=== PATIENT | male | born 1965 | race Caucasian/White ===

== ENCOUNTER → 2019-04-07 | Outpatient (CLI) | payer BC ==
--- NOTE | 2019-04-07 20:35 | CONS ---
CONSULTATION DATE OF SERVICE: 04/07/2019 This patient is a 53-year-old gentleman who has been evaluated in Sleep Center for obstructive sleep apnea-hypopnea syndrome. HISTORY OF PRESENT ILLNESS/SLEEP-WAKE EVALUATION: The patient was diagnosed with severe obstructive sleep apnea in 2011. At that time, apnea-hypopnea index was 56.4 with oxygen desaturation to 82%. Subsequently he had CPAP and BiPAP titration and received a BiPAP unit with a pressure of 13/6 cm of water. Since that time until present, the patient has continued to use his BiPAP equipment every night for the whole night. Recently he developed snoring with the BiPAP equipment, and also recently his BiPAP machine was broken. At present his sleep schedule is from around 3 a.m. until 11 a.m. on weekdays and from around 3 or 4 a.m. until 12 noon on weekends. The patient works an afternoon shift. No problem with falling asleep. No TV in bedroom. During the day, he may feel some sleepiness. [place] Sleepiness Scale is 9. He may take a nap around 5 p.m. on days off. He feels refreshed after naps and may see vivid dreams after naps. No history of hypnagogic hallucinations, sleep paralysis or cataplexy. PAST MEDICAL HISTORY: Positive for: 1. Hypertension. 2. Diabetes mellitus. 3. Hyperlipidemia. 4. Acid reflux. PAST SURGICAL HISTORY: 1. Tonsillectomy. 2. Fatty tumor removed from the back. MEDICATIONS: 1. Omeprazole. 2. Cymbalta. 3. Lisinopril. 4. Metformin. 5. Lipitor. SOCIAL HISTORY: Positive for smoking about one pack a day for 20 years. Alcohol consumption occasional. FAMILY HISTORY: Hypertension, heart problems, hyperlipidemia, mental illness. REVIEW OF SYSTEMS: Sometimes snoring with BiPAP. PHYSICAL EXAMINATION: GENERAL: A pleasant gentleman without distress. VITAL SIGNS: BP 136/76, HR 84, RR 18, height 5 feet 7-1/4 inches, weight 270 pounds, body mass index 42.0, temperature 98.4, oxygen saturation at room air 97%. HEENT: PERRLA, EOMI. Evaluation of oropharynx showed tongue protrudes midline. Extremely low position of soft palate. Mallampati IV. Wide neck; 20-1/4 inches in circumference. NECK: Supple. No JVD. Thyroid is not palpable. LUNGS: Clear to percussion and to auscultation. Good air exchange. No wheezing or rhonchi. HEART: S1, S2 regular. No murmurs, gallops or rubs. ABDOMEN: Obese. EXTREMITIES: No clubbing or cyanosis. RETURNED CASE INSPECTOR: Awake, alert, and oriented X3. Cranial nerves 2 to 7 intact. There is no fasciculation or atrophy. noted. No focal deficits observed. IMPRESSION: 1. History of severe obstructive sleep apnea with apnea-hypopnea index 56.4 and oxygen desaturation to 82%. The patient is on treatment with BiPAP and has demonstrated great compliance with treatment, but his machine recently was broken. He slept well on the machine but developed snoring, which has been present also while he was on BiPAP. 2. Obesity; body mass index 42.0. He has had a change in his weight, down from 278 pounds to 270 pounds now from the time when he had titration. 3. Hypertension. 4. Diabetes mellitus. 5. Hyperlipidemia. 6. Acid reflux. 7. Status post tonsillectomy. 8. 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 PLAN: 1. Patient will continue to use BiPAP equipment every night for the whole night. 2. Prescription for Auto BiPAP with a maximal inspiratory pressure of 15 and minimal expiratory pressure 6, but with a pressure support of 4. 3. Prescription for all necessary supplies, including mask, tube, filters. 4. Losing weight. 5. Sleep hygiene with regular time in bed for at least 8 hours. 6. No driving if feeling any sleepiness. 7. Follow-up visit in one month after the patient gets new BiPAP equipment to evaluate clinical response on treatment and compliance with treatment and to make any necessary adjustments. Thank you very much for allowing me to participate in the management of your patient. Sincerely, Hema Bonilla MD, PhD, FAASM Diplomat of [employer] Street [employer] Servicer of [facility] [place] MMISHMAEL / NONI: [id number] /
== END ==
LOC: SLEEP 13:44
PROVIDERS: ATTEND Internal Medicine
DX: G47.33 Obstructive sleep apnea (adult) (pediatric) (principal); E66.9 Obesity, unspecified; I10 Essential (primary) hypertension; E11.9 Type 2 diabetes mellitus without complications; E78.5 Hyperlipidemia, unspecified; F17.210 Nicotine dependence, cigarettes, uncomplicated; K21.9 Gastro-esophageal reflux disease without esophagitis; Z90.89 Acquired absence of other organs; Z99.89 Dependence on other enabling machines and devices; Z68.41 Body mass index [BMI] 40.0-44.9, adult; Z79.899 Other long term (current) drug therapy; Z79.84 Long term (current) use of oral hypoglycemic drugs; Z98.890 Other specified postprocedural states
CPT/HCPCS: 99211

== ENCOUNTER → 2020-11-14 | Outpatient (CLI) | payer BC ==
--- NOTE | 2020-11-15 06:25 | SFUN ---
SLEEP CENTER FOLLOW UP NOTE DATE OF SERVICE: 11/14/2020 HISTORY OF PRESENT ILLNESS: A 55-year-old gentleman who has been followed in Sleep Center for treatment of obstructive sleep apnea-hypopnea syndrome. The patient continues to use his BiPAP equipment every night, likes his machine and mask. No significant problem related to mask fitting, pressure or humidification. [place] Sleepiness Scale today is 6. I checked his BiPAP unit. Pressure in the range of 15 maximal inspiratory pressure and 6 minimal expiratory pressure. Usage 29/30 nights for more than 4 hours with average usage is 6.6 hours per night. Leak is 23 L/minute which is borderline. Apnea-hypopnea index is 4.5, which is normal. MEDICATIONS: Omeprazole, lisinopril, Lipitor, Cymbalta. PHYSICAL EXAM: Patient in no distress. BP 144/87, HR 88, RR 15, height 5 feet 8-1/2 inches, weight 261 pounds, BMI 39.2, temperature 98.5, oxygen saturation at room air 98%. HEENT: PERRLA, EOMI. Oropharynx extremely low position of soft palate. Mallampati 4. NECK: Supple, no JVD. Thyroid is not palpable. LUNGS: Clear to percussion and to auscultation. Good air exchange. No wheezing or rhonchi. HEART: S1, S2 regular. No murmurs, gallops, or rubs. ABDOMEN: Soft and nontender. Bowel sounds are present. No organomegaly appreciated. EXTREMITIES: No clubbing or cyanosis. FRAME REPAIRER: Awake, alert, and oriented X3. Cranial nerves 2 to 7 intact. There is no fasciculation or atrophy. noted. No focal deficits observed. IMPRESSION: 1. Severe obstructive sleep apnea-hypopnea syndrome. Patient demonstrated 100% compliance with treatment benefitting from BiPAP therapy. 2. Obesity. Patient lost 9 pounds since previous visit. 3. Hypertension. 4. Diabetes mellitus. 5. Hyperlipidemia. 6. Acid reflux. 7. Status post tonsillectomy. 8. 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 PLAN: PLAN 1. Patient will continue to use PAP equipment every night for the whole night. 2. Sleep hygiene with regular time in bed for at least 7-1/2 to 8 hours. 3. Precautions related to driving. No driving if feeling sleepiness. 4. I will maintain all necessary prescription for PAP supplies including mask, tube, filters. 5. Watching weight. 6. No driving if feeling sleepiness. 7. Follow-up visit in 6 months or earlier if patient has any problems. Thank you very much for allowing me to participate in management of your patient. Sincerely, Hema Bonilla MD, PhD, FAASM Diplomat of [employer] Mechanical Systems Designer of [facility] [place] MMODL / GRADYN: [id number] /
== END | disposition home or self-care (01) ==
LOC: SLEEP 16:22
PROVIDERS: ATTEND Internal Medicine
DX: G47.33 Obstructive sleep apnea (adult) (pediatric) (principal); E66.9 Obesity, unspecified; I10 Essential (primary) hypertension; E11.9 Type 2 diabetes mellitus without complications; E78.5 Hyperlipidemia, unspecified; K21.9 Gastro-esophageal reflux disease without esophagitis; Z99.89 Dependence on other enabling machines and devices; Z79.899 Other long term (current) drug therapy; Z98.890 Other specified postprocedural states

== ENCOUNTER → 2021-05-23 | Outpatient (CLI) | payer BC ==
--- NOTE | 2021-05-24 12:24 | SFUN ---
SLEEP CENTER FOLLOW UP NOTE DATE OF SERVICE: 05/23/2021 This 55-year-old gentleman has been followed in Sleep Center for treatment of obstructive sleep apnea-hypopnea syndrome. The patient continues to use his BiPAP equipment every night for the whole night. No problems with the supplies. No snoring with the machine. [place] Sleepiness Scale is 5, which is totally normal. I checked his BiPAP unit. Maximal inspiratory pressure is 15, minimal expiratory pressure 6, pressure support 4, average pressure 13/9 cm of water. Usage is 100% of nights and 28/30 nights for more than 4 hours, average 7 hours per night. Leak is 22 L/minute, which is borderline. Apnea-hypopnea index is 1.2, which is absolutely perfect. MEDICATIONS: 1. Omeprazole. 2. Cymbalta. 3. Lisinopril. 4. Lipitor. 5. Metformin. PHYSICAL EXAMINATION: GENERAL: A pleasant patient without any distress. VITAL SIGNS: BP 128/68, HR 96, RR 15, height 5 feet 8-1/2 inches, weight 258 pounds, which is 3 pounds less than during previous visit, BMI 38.6, temperature 98.4, oxygen saturation at room air 98%. HEENT: PERRLA, EOMI, evaluation of oropharynx showed tongue protrudes midline. Extremely low position of soft palate. Mallampati 4. NECK: Supple, no JVD. Thyroid is not palpable. LUNGS: Clear to percussion and to auscultation. Good air exchange. No wheezing or rhonchi. HEART: S1, S2 regular. No murmurs, gallops, or rubs. ABDOMEN: Obese. EXTREMITIES: No clubbing or cyanosis. LINER ASSEMBLER: Awake, alert, and oriented X3. Cranial nerves 2 to 7 intact. There is no fasciculation or atrophy. noted. No focal deficits observed. IMPRESSION: 1. Severe obstructive sleep apnea-hypopnea syndrome. Patient demonstrated 100% compliance with BiPAP, benefitting from treatment. 2. Obesity. 3. Hypertension. 4. Diabetes mellitus. 5. Hyperlipidemia. 6. Acid reflux. 7. Status post tonsillectomy. 8. 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 PLAN: 1. Patient will continue to use PAP equipment every night for the whole night. 2. Sleep hygiene with regular time in bed for at least 7-1/2 to 8 hours. 3. Precautions related to driving. No driving if feeling sleepiness. 4. I will maintain all necessary prescription for PAP supplies including mask, tube, filters. 5. Watching weight. 6. Follow-up visit in 6 months or earlier if patient has any problems. Thank you very much for allowing me to participate in the management of your patient. Sincerely, Hema Bonilla MD, PhD, FAASM Diplomat of [place] [employer] Sleep Medicine Board of [place] [employer] Medicine [employer] Worker of [facility] [place] MMODL / GRADYN: [id number] /
== END ==
LOC: SLEEP 16:32
PROVIDERS: ATTEND Internal Medicine
DX: G47.33 Obstructive sleep apnea (adult) (pediatric) (principal); E66.9 Obesity, unspecified; I10 Essential (primary) hypertension; E11.9 Type 2 diabetes mellitus without complications; K21.9 Gastro-esophageal reflux disease without esophagitis; E78.5 Hyperlipidemia, unspecified; Z90.09 Acquired absence of other part of head and neck; Z98.890 Other specified postprocedural states; Z68.36 Body mass index [BMI] 36.0-36.9, adult; Z99.89 Dependence on other enabling machines and devices; Z79.84 Long term (current) use of oral hypoglycemic drugs; Z79.899 Other long term (current) drug therapy; Z88.0 Allergy status to penicillin

== ENCOUNTER → 2023-12-17 | Outpatient (CLI) | payer BC ==
[2023-12-17 10:47] VITALS: BP 115/79; PULSE 114; RESP 16; TEMP 98.6
--- NOTE | 2023-12-17 10:58 | P.PN ---
Subjective DATE: 12/17/2023 FOLLOW UP VISIT. Patient with obstructive sleep apnea hypopnea syndrome return to sleep center for follow-up visit. Information from previous visit have been reviewed. Patient is using PAP equipment every night for the whole night, getting PAP supplies in time. The patient does not have significant problems with the mask, PAP unit and humidification. [place] sleepiness scale is 5, which is normal. I checked information from BPAP unit. PAP unit pressure maximal inspiratory pressure 15, minimal expiratory pressure 6, pressure support 4 cm H2O. Usage is 100% for more then 4 hours, average 8.3 hours per night. Leak is 24 l/m, which is in acceptable range. Apnea Hypopnea Index is 1.8, which is normal. MEDICATIONS:1. Omeprazole 2. Lisinopril 10 mg once a day 3. Lipitor 10 mg once a day 6 4. Cymbalta During physical exam: GENERAL: A pleasant patient without any distress. VITAL SIGNS: BP 115/79, HR 110, RR 16, weight 250, temperature 98.6, oxygen saturation at room air 97% . HEENT: PERRLA, EOMI.low position of soft palate, Mallapati 4 . NECK: Supple. No JVD. LUNGS: Clear to percussion and to auscultation. Good air exchange. No wheezing or rhonchi. HEART: S1, S2 regular. ABDOMEN: Soft and nontender.[] EXTREMITIES: No clubbing or cyanosis. COMMERCIAL COUNSEL: Awake, alert, and oriented x3. No focal deficit. Impressions: 1. Obstructive sleep apnea-hypopnea syndrome. Patient demonstrated great compliance with treatment, benefiting from treatment. 2. Obesity, patient lost 8 pounds compliant with the previous visit. 3. Diabetes mellitus. 4. Hypertension. 5. Hyperlipidemia. 6. Acid reflux. 7. 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 8. Status post tonsillectomy. Plan: 1. Continue using PAP equipment every night for the whole night. 2. To change air filter at least 1-2 times per month. 3. PAP unit should stay lower then position of the head. 4. Advised patient to remove all remaining water from humidifier canister daily and make it dry after each usage. Refill canister with fresh distilled water before each usage. 5. Sleep hygiene with regular time in bed for at least 8 hours. 6. Precautions related to driving. No driving if feel any sleepiness. 7. I will maintain prescription for PAP supplies including mask, tube, filters. 8. Follow up visit in 6 months or earlier if patient has any problems. 9. Watching and losing weight. Thank you very much for allowing me to participate in the management of your patient. Hema Bonilla MD, PhD, FAASM. Diplomat of [place] Board [employer] Medicine, Sleep Medicine Board by [place] [employer] Medicine Information Support Project Manager of [facility] [place] Objective - Vital Signs Vital signs: Vital Signs Temp 98.6 F 12/17/23 10:36 Pulse 114 H 12/17/23 10:36 Resp 16 12/17/23 10:36 BP 115/79 12/17/23 10:36 Pulse Ox 97 12/17/23 10:36 FiO2
== END ==
LOC: 3 N SLEEP 10:28
PROVIDERS: ATTEND Internal Medicine
DX: G47.33 Obstructive sleep apnea (adult) (pediatric) (principal); E66.9 Obesity, unspecified; E11.9 Type 2 diabetes mellitus without complications; I10 Essential (primary) hypertension; E78.5 Hyperlipidemia, unspecified; K21.9 Gastro-esophageal reflux disease without esophagitis; F17.200 Nicotine dependence, unspecified, uncomplicated; Z98.890 Other specified postprocedural states; Z90.89 Acquired absence of other organs; Z99.89 Dependence on other enabling machines and devices; Z79.899 Other long term (current) drug therapy; Z88.0 Allergy status to penicillin
CPT/HCPCS: 99212

== ENCOUNTER 2024-05-02 14:18 | Emergency (ER) | payer BC ==
[2024-05-02 14:31] VITALS: RESP 18; TEMP 98.2
--- NOTE | 2024-05-02 14:47 | ED ---
General Adult HPI - General Chief complaint: Neuro Symptoms/Deficit Stated complaint: Vision issue Time Seen by Provider: 05/02/24 14:34 Source: patient Mode of arrival: ambulatory - History of Present Illness Initial comments: Dictation was produced using [employer] dictation software. please excuse any grammatical, word or spelling errors. Chief Complaint: 58-year-old male presents with double vision History of Present Illness: Patient 58-year-old male states that he has past medical history of hypertension, dyslipidemia and GERD. States that for the last approximately 3 hours he has been having rib reported double vision. States that he called ophthalmology and was told to come to the ER for concerns of possible stroke. Patient denies any extremity deficits. at the bedside states that patient is not confused. Patient states that whenever he tries not to focus on an image it starts to look double. Denies any pain complaints. The ROS documented in this emergency department record has been reviewed and confirmed by me. Those systems with pertinent positive or negative responses have been documented in the HPI. All other systems are other negative and/or noncontributory. - Related Data Home Medications Medication Instructions Recorded Confirmed Atorvastatin [Lipitor] 10 mg PO DAILY 12/13/14 05/02/24 Cetirizine HCl [Zyrtec] 10 mg PO DAILY 05/02/24 05/02/24 DULoxetine HCL [Cymbalta] 90 mg PO DAILY 05/02/24 05/02/24 Omeprazole 20 mg PO DAILY 05/02/24 05/02/24 Repaglinide [Prandin] 1 mg PO TID-W/MEALS 05/02/24 05/02/24 lisinopriL [Zestril] 10 mg PO DAILY 05/02/24 05/02/24 metFORMIN HCL [Glucophage] 1,000 mg PO BID-W/MEALS 05/02/24 05/02/24 Allergies Allergy/AdvReac Type Severity Reaction Status Date / Time Penicillins Allergy Unknown Verified 05/02/24 15:55 Childhood Review of Systems ROS Statement: Those systems with pertinent positive or pertinent negative responses have been documented in the HPI. ROS Other: All systems not noted in ROS Statement are negative. Past Medical History Past Medical History: GERD/Reflux, Hyperlipidemia, Hypertension History of Any Multi-Drug Resistant Organisms: None Reported Past Surgical History: Tonsillectomy Past Psychological History: No Psychological Hx Reported Smoking Status: Former smoker, Vaper Past Alcohol Use History: None Reported Past Drug Use History: None Reported General Exam - General Exam Comments Initial Comments: PHYSICAL EXAM: General Impression: Alert and oriented x3, not in acute distress HEENT: Normocephalic atraumatic, extra-ocular movements intact, pupils equal and reactive to light bilaterally, mucous membranes moist. Cardiovascular: Heart regular rate and rhythm Chest: Able to complete full sentences, no retractions, no tachypnea Abdomen: abdomen soft, non-tender, non-distended, no organomegaly Musculoskeletal: Pulses present and equal in all extremities, no peripheral edema Motor: no focal deficits noted Neurological: CN II-XII grossly intact, no focal motor or sensory deficits noted Skin: Intact with no visualized rashes Psych: Normal affect and mood Course Vital Signs 05/02/24 14:28 Temperature 98.2 F Pulse Rate 93 Respiratory 18 Rate Blood Pressure 116/82 O2 Sat by Pulse 97 Oximetry EKG Findings - EKG Comments: EKG Findings:: My EKG interpretation: Ventricular rate 74, sinus rhythm, MN interval 179, QRS 111, QTc 394. No MN prolongation, no QTC prolongation, no ST or T-wave changes noted. Overall, this EKG is unremarkable Medical Decision Making - Medical Decision Making Was pt. sent in by a medical professional or institution ([facility], [facility], urgent care, hospital, or snf...) When possible be specific @ -No Did you speak to anyone other than the patient for history (EMS, parent, family, police, friend...)? What history was obtained from this source @ -No Did you review nursing and triage notes (agree or disagree)? Why? @ -I reviewed and agree with nursing and triage notes Were old charts reviewed (outside hosp., previous admission, EMS record, old EKG, old radiological studies, urgent care reports/EKG's, snf records)? Report findings @ -No old charts were reviewed Differential Diagnosis (chest pain, altered mental status, abdominal pain women, abdominal pain men, vaginal bleeding, musculoskeletal, weakness, fever, dyspnea, syncope, headache, dizziness, GI bleed, back pain, seizure, CVA, palpatations, mental health)? @ - Differential CVA: Ischemic stroke, hemorrhagic stroke, brain tumor, atypical migraine, Wernicke's encephalopathy, seizure, multiple sclerosis, meningitis, encephalitis, hypoglycemia, Guillain-Estrada, electrolytes disturbance, myasthenia gravis.... This is not meant to be an all-inclusive list EKG interpreted by me (3pts min.). @ -See above X-rays interpreted by me (1pt min.). @ -None done CT interpreted by me (1pt min.). @ -CT scan the brain is nonacute.CT angiography shows no large vessel occlusion. There does appear to be calcifications scattered. U/S interpreted by me (1pt. min.). @ -None done What testing was considered but not performed or refused? (CT, X-rays, U/S, labs)? Why? @ -None What meds were considered but not given or refused? Why? @ -None Was smoking cessation discussed for >3mins.? @ -No Were there social determinants of health that impacted care today? How? (Homelessness, low income, unemployed, alcoholism, drug addiction, transportation, low edu. Level, literacy, decrease access to med. care, half-way, rehab)? @ -No Was there de-escalation of care discussed even if they declined (Discuss DNR or withdrawal of care, Hospice)? DNR status @ -No What co-morbidities impacted this encounter? (DM, HTN, Smoking, COPD, CAD, Cancer, CVA, ARF, Chemo, Hep., AIDS, mental health diagnosis, sleep apnea, morbid obesity)? @ -None Was patient admitted / discharged? Hospital course, mention meds given and route, prescriptions, significant lab abnormalities, going to OR and other pertinent info. @ -58-year-old male presents emergency department diplopia. Vital signs upon arrival are within acceptable limits. Patient has no appreciable diplopia on physical examination. He has no other focal exam findings. Laboratory aisha luation is unremarkable. Laboratory evaluation obtained. CT brain is negative for any acute processes. Disposition options were discussed with patient he is told that CVA is part of the differential. It is recommended to the patient to be admitted overnight to see our stroke specialist. Patient refused would rather be discharged he does not think that anything serious he does have a neurologist he can follow-up with. Furthermore he wants to follow-up with cleaning team member. Discussed with patient that this is a reasonable disposition given that his symptoms have resolved. Patient is given strict return precautions. Diagnosis/symptom? @ -Diplopia Acute, or Chronic, or Acute on Chronic? @ -Default Uncomplicated (without systemic symptoms) or Complicated (systemic symptoms)? @ -Default Side effects of treatment? @ -None Exacerbation, Progression, or Severe Exacerbation] @ -No Poses a threat to life or bodily function? @ -yes - Lab Data Result diagrams: 05/02/24 15:06 05/02/24 15:06 Lab Results 05/02/24 05/02/24 05/02/24 Range/Units 15:06 15:06 15:06 WBC 8.7 (3.8-10.6) k/uL RBC 5.19 (4.30-5.90) m/uL Hgb 15.5 (13.0-17.5) gm/dL Hct 47.6 (39.0-53.0) % MCV 91.8 (80.0-100.0) fL MCH 29.8 (25.0-35.0) pg MCHC 32.5 (31.0-37.0) g/dL RDW 13.2 (11.5-15.5) % Plt Count 216 (150-450) k/uL MPV 7.5 Neutrophils % 67 % Lymphocytes % 23 % Monocytes % 4 % Eosinophils % 4 % Basophils % 1 % Neutrophils # 5.8 (1.3-7.7) k/uL Lymphocytes # 2.0 (1.0-4.8) k/uL Monocytes # 0.4 (0-1.0) k/uL Eosinophils # 0.3 (0-0.7) k/uL Basophils # 0.0 (0-0.2) k/uL PT 10.1 (10.0-12.5) sec INR 0.9 (<1.2) APTT 24.0 (22.0-30.0) sec Sodium 137 (137-145) mmol/L Potassium 4.5 (3.5-5.1) mmol/L Chloride 106 (98-107) mmol/L Carbon Dioxide 21 L (22-30) mmol/L Anion Gap 10 mmol/L BUN 20 (9-20) mg/dL Creatinine 0.91 (0.66-1.25) mg/dL Est GFR (CKD-EPI)AfAm >90 (>60 ml/min/1.73 sqM) Est GFR (CKD-EPI)NonAf >90 (>60 ml/min/1.73 sqM) Glucose 118 H (74-99) mg/dL Calcium 9.6 (8.4-10.2) mg/dL Disposition Clinical Impression: Diplopia Disposition: HOME SELF-CARE Condition: Fair Instructions (If sedation given, give patient instructions): Diplopia (ED) Additional Instructions: Please follow-up primary care doctor and neurologist. You are instructed to seek immediate medical attention especially with any worsening symptoms. At this point there is some concern for cerebrovascular accident. Is patient prescribed a controlled substance at d/c from ED?: No Referrals: Krunal Diaz DO [Primary Care Provider] - 1-2 days Time of Disposition: 16:10
[2024-05-02 15:13] LABS: Basophils % (A) 1 %; Eosinophils # (A) 0.3 k/uL (0-0.7); Eosinophils % (A) 4 %; HCT 47.6 % (39.0-53.0); HGB 15.5 gm/dL (13.0-17.5); Lymphocytes % (A) 23 %; MCH 29.8 pg (25.0-35.0); MCHC 32.5 g/dL (31.0-37.0); MCV 91.8 fL (80.0-100.0); Mean Platelet Volume 7.5; Monocytes # (A) 0.4 k/uL (0-1.0); Monocytes % (A) 4 %; Neutrophils # (A) 5.8 k/uL (1.3-7.7); Neutrophils % (A) 67 %; Platelet Count 216 k/uL (150-450); RBC 5.19 m/uL (4.30-5.90); RDW 13.2 % (11.5-15.5); WBC 8.7 k/uL (3.8-10.6)
[2024-05-02 15:23] LABS: African American GFR (CKD) >90 (>60 ml/min/1.73 sqM); Anion Gap 10 mmol/L; Blood Urea Nitrogen 20 mg/dL (9-20); Calcium 9.6 mg/dL (8.4-10.2); Carbon Dioxide 21 mmol/L (22-30); Chloride 106 mmol/L (98-107); Glucose 118 mg/dL (74-99); Non-African American GFR(CKD) >90 (>60 ml/min/1.73 sqM); Potassium 4.5 mmol/L (3.5-5.1); Sodium 137 mmol/L (137-145)
[2024-05-02 15:28] LABS: INR 0.9 (<1.2); Prothrombin Time 10.1 sec (10.0-12.5)
--- NOTE | 2024-05-02 15:49 | CT ---
EXAMINATION TYPE: CT brain wo con DATE OF EXAM: 05/02/2024 COMPARISON: None HISTORY: double vision CT DLP: 1157 mGycm Automated exposure control for dose reduction was used. Findings: The ventricles, basal cisterns and sulci over the convexities are within normal limits and there is n o mass effect or shift of midline structures. No abnormal density is seen throughout the brain parenchyma and there is no acute intra or extra-axia l hemorrhage. The posterior fossa including the brainstem, fourth ventricle and cerebellar pontine angles appear no rmal. Intraorbital contents appear normal and symmetric. Visualized paranasal sinuses and mastoid air cells are well aerated. The calvarium is intact. IMPRESSION: No significant abnormality seen. There is no acute bleed or mass effect.
--- NOTE | 2024-05-02 16:04 | CT ---
EXAMINATION TYPE: CT angio head neck DATE OF EXAM: 05/02/2024 HISTORY: double visio COMPARISON: None CT DLP: 2072 mGycm. Automated Exposure Control for Dose Reduction was Utilized. TECHNIQUE: CTA scan of the head and neck is performed with IV Contrast, patient injected with 65ml m L of Isovue 370, axial images are obtained, coronal and sagittal reformatted images are reviewed. 3D reconstructed images are created on an independent workstation and reviewed. FINDINGS: The brachiocephalic origins are widely patent and no significant stenosis. There is no significant stenosis of the common or internal carotid arteries within the neck. There is minimal calcified plaque in the carotid bifurcations bilaterally. There is no stenosis of the vertebral arteries. Intracranially, there is no stenosis, segmental occlusion, sizable aneurysm sac or vascular malformat ion. There are mild calcifications in the carotid siphons bilaterally. IMPRESSION:. Mild scattered calcifications in the carotid bifurcations in the neck and within the ca rotid siphons. No significant stenosis, aneurysm or occlusive disease. NASCET criteria was used in interpretation of this exam?
[2024-05-02 16:28] VITALS: BP 106/45; PULSE 72
[2024-05-02] MEDS: ASPIRIN 81 MG PO STA (16:28)
== END 2024-05-02 16:43 | disposition home or self-care (01) ==
LOC: EC 14:18
DX: H53.2 Diplopia (principal); F17.290 Nicotine dependence, other tobacco product, uncomplicated; Z88.0 Allergy status to penicillin
CPT/HCPCS: 36415; 93005; 80048; 85025; 85610; 85730; 70496; 70450; 70498; 99284; Q9967

== ENCOUNTER → 2024-05-12 | Outpatient (CLI) | payer BC ==
--- NOTE | 2024-05-12 11:09 | MR ---
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 TECHNIQUE: Multi planar, multi sequence imaging was performed through the brain including: T1, T2, In version recovery, susceptibility weighted imaging and gradient echo imaging and Diffusion weighted im aging. The patient was then given intravenous contrast and multi planar, T1 fat-saturation images wer e obtained. IV Contrast: 11 cc Gadavist FINDINGS: No evidence for intracranial mass. The course of the bilateral trochlear nerves appears madan bstructed. No aneurysm identified. The mccord-white junctions, ventricular system, basal cisterns appea r unremarkable. Diffusion-weighted imaging shows no evidence of restricted diffusion to suggest acut e/subacute infarct. Intracranial arterial flow voids are maintained. Midline structures show no abnor mality. Scattered foci of high T2 signal intensity are seen within the periventricular white matter. Some of these white matter changes are orthogonal to the lateral ventricles. The susceptibility weigh carroll images do not reveal any evidence for micro-hemorrhage. After administration of gadolinium, no ab normal enhancement is seen. The bone marrow signal is within normal limits. Paranasal sinuses and mastoid air cells: No significant paranasal sinus disease. Visualized orbits: Orbital contents are intact. No abnormal enhancement of the optic nerves or mass w ithin the orbits bilaterally. IMPRESSION: 1. No evidence for trochlear nerve abnormality. The course of the trochlear nerves is uninterrupted. No evidence of intracranial mass, acute/subacute infarct, or abnormal enhancement. 2. Nonspecific white matter changes, some of which are more orthogonal to the lateral ventricles shelbi elate for demyelination versus small vessel ischemic disease.
== END | disposition home or self-care (01) ==
LOC: RADMRIMAIN 09:26
PROVIDERS: ATTEND Ophthalmology
DX: H49.22 Sixth [abducent] nerve palsy, left eye (principal); H53.2 Diplopia
CPT/HCPCS: 70553; A9585

== ENCOUNTER → 2024-09-15 | Outpatient (CLI) | payer BC ==
[2024-09-15 11:35] VITALS: BP 123/86; PULSE 89; RESP 18; TEMP 98.1
--- NOTE | 2024-09-15 11:53 | P.PROGSL ---
Subjective DATE: 09/15/2024 FOLLOW UP VISIT. Patient with obstructive sleep apnea hypopnea syndrome return to sleep center for follow-up visit. Information from previous visit have been reviewed. Patient is using PAP equipment every night for the whole night, getting PAP supplies in time. The patient does not have significant problems with the mask, PAP unit and humidification. [place] sleepiness scale is 9, which is borderline. I checked information from PAP unit. PAP unit pressure maximal inspiratory pressure 15, minimal expiratory pressure 6, pressure support 4, average pressure 13.5/9.5 cm H2O. Usage is 100% for more then 4 hours, average 7.5 hours per night. Leak is 19 l/m, which is in acceptable range. Apnea Hypopnea Index is perfect 0.8. MEDICATIONS have been reviewed, please see below. During physical exam: GENERAL: A pleasant patient without any distress. VITAL SIGNS: Please see below, weight is 251.6 lbs. HEENT: PERRLA, EOMI.low position of soft palate, Mallapati 4 . NECK: Supple. No JVD. LUNGS: Clear to percussion and to auscultation. Good air exchange. No wheezing or rhonchi. HEART: S1, S2 regular. ABDOMEN: Soft and nontender. Slightly obese EXTREMITIES: No clubbing or cyanosis. TUB RIDER: Awake, alert, and oriented x3. No focal deficit. Impressions: 1. Obstructive sleep apnea-hypopnea syndrome. Patient demonstrated great compliance with treatment, benefiting from treatment. 2. Obesity, BMI 38.7. 3. Diabetes mellitus, last hemoglobin A1c according to patient 6.4. 4. Hypertension. 5. Hyperlipidemia. 6. Acid reflux. 7. Status post tonsillectomy. 8. 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 Plan: 1. Continue using PAP equipment every night for the whole night. 2. Sleep hygiene with regular time in bed for at least 7.5-8 hours 3. PAP unit should stay lower then position of the head. 4. Advised patient to remove all remaining water from humidifier canister daily and make it dry after each usage. Refill canister with fresh distilled water before each usage. 5. Watching and losing weight. 6. Precautions related to driving. No driving if feel any sleepiness. 7. I will maintain prescription for PAP supplies including mask, tube, filters. 8. Follow up visit in 8 months or earlier if patient has any problems. Thank you very much for allowing me to participate in the management of your patient. Hema Bonilla MD, PhD, FAASM. Diplomat of [place] [employer], Sleep Medicine Board by [place] [employer] [facility] [place] Objective - Vital Signs Vital Signs: Vital Signs Temp 98.1 F 09/15/24 11:35 Pulse 89 09/15/24 11:35 Resp 18 09/15/24 11:35 BP 123/86 09/15/24 11:35 Pulse Ox 95 09/15/24 11:35 FiO2 Intake & Output 09/14/24 09/15/24 09/15/24 18:59 06:59 18:59 Weight 114.022 kg Home Medications: Home Medications Medication Instructions Recorded Confirmed Type Atorvastatin [Lipitor] 10 mg PO DAILY 12/13/14 09/15/24 History Cetirizine HCl [Zyrtec] 10 mg PO DAILY 05/02/24 05/02/24 History DULoxetine HCL [Cymbalta] 90 mg PO DAILY 05/02/24 05/02/24 History Omeprazole 10 mg PO DAILY 05/02/24 09/15/24 History Repaglinide [Prandin] 1 mg PO TID-W/MEALS 05/02/24 05/02/24 History lisinopriL [Zestril] 10 mg PO DAILY 05/02/24 09/15/24 History metFORMIN HCL [Glucophage] 500 mg PO DAILY 05/02/24 09/15/24 History
== END ==
LOC: 3 N SLEEP 10:44
PROVIDERS: ATTEND Internal Medicine
DX: G47.33 Obstructive sleep apnea (adult) (pediatric) (principal); E66.9 Obesity, unspecified; E11.9 Type 2 diabetes mellitus without complications; I10 Essential (primary) hypertension; E78.5 Hyperlipidemia, unspecified; K21.9 Gastro-esophageal reflux disease without esophagitis; F17.200 Nicotine dependence, unspecified, uncomplicated; Z98.890 Other specified postprocedural states; Z90.89 Acquired absence of other organs; Z99.89 Dependence on other enabling machines and devices; Z68.38 Body mass index [BMI] 38.0-38.9, adult; Z88.0 Allergy status to penicillin; Z79.899 Other long term (current) drug therapy; Z79.84 Long term (current) use of oral hypoglycemic drugs
CPT/HCPCS: 99212